=== PATIENT | female | born 1960 | race Caucasian/White ===

== ENCOUNTER 2018-10-16 12:26 | Day surgery (SDC) | payer OTHER ==
[2018-10-16] MEDS ORDERED: FENTAnyl 50 MCG/ML VIAL (16:35)
[2018-10-16] MEDS ORDERED: MIDAZOLAM 1 MG/ML 2 ML INJ ×2 (16:35)
== END 2018-10-16 18:23 | disposition home or self-care (01) ==
LOC: GIL 12:26
DX: Z12.11 Encounter for screening for malignant neoplasm of colon (principal); K57.30 Diverticulosis of large intestine without perforation or abscess without bleeding
CPT/HCPCS: 45378